=== PATIENT | male | born 1995 | race Caucasian/White ===

== ENCOUNTER 2023-06-21 04:15 | Emergency (ER) | payer SELFPAY | END 2023-06-21 04:53 | disposition home or self-care (01) | LOC: DL.ED 04:15 | DX: F41.9 Anxiety disorder, unspecified (principal); R56.9 Unspecified convulsions; F17.210 Nicotine dependence, cigarettes, uncomplicated | CPT/HCPCS: 99282; 99284 ==

== ENCOUNTER 2023-07-10 21:56 | Emergency (ER) | payer OTHER ==
[2023-07-10 22:46] LABS: BASOPHILS PERCENT AUTO 0.4 % (0.0-1.0); EOSINOPHILS PERCENT AUTO 0.3 % (1.0-3.0); HEMATOCRIT 42.3 % (40.0-54.0); HEMOGLOBIN 14.5 g/dL (14.0-18.0); LYMPHOCYTES PERCENT AUTO 22.7 % (20.5-50.1); MEAN CORPUSCULAR HEMOGLOBIN 30.5 pg (27.0-34.0); MEAN CORPUSCULAR HGB CONC 34.3 g/dL (33.0-35.0); MEAN CORPUSCULAR VOLUME 89.1 fL (80-100); MONOCYTES PERCENT AUTO 5.8 % (2-8); NEUTROPHILS PERCENT AUTO 70.8 % (42.2-75.2); PLATELET COUNT,PLT 361 10^3/uL (150-450); RED BLOOD CELL COUNT 4.75 10^6/uL (4.6-6.2); WHITE BLOOD CELL COUNT,WBC 10.6 10^3/uL (5.0-10.0)
[2023-07-10] MEDS ORDERED: Iopamidol 755 Mg/ML 100 ML Bottle IVPUSH ONE (22:52)
[2023-07-10] MEDS ORDERED: Diphtheria,Pertussis(Acell),Tetanus Vaccine 0.5 ML Syringe IM ONE (22:55)
[2023-07-10 23:05] LABS: A/G RATIO 1.1; ALBUMIN 3.7 g/dL (3.4-5.0); ANION GAP 17.8 mEq/L (7-13); BILIRUBIN TOTAL 0.2 mg/dL (0.2-1.0); BUN/CREATININE RATIO 11.2 (No establ ref range); CALCIUM 8.6 mg/dL (8.5-10.1); CREATININE 0.89 mg/dL (0.70-1.30); EST CRCL DRUG DOSING (CG) 115.53 mL/min; POTASSIUM,K 2.8 mmol/L (3.5-5.1); PROTEIN TOTAL,TP 7.2 g/dL (6.4-8.2)
[2023-07-10 23:14] LABS: PROTHROMBIN TIME 10.3 SEC (9.0-12.0); PTT,PARTIAL THROMBOPLSTIN TIME 27.2 SEC (22.0-34.0)
[2023-07-10 23:42] LABS: APPEARANCE,URINE CLEAR (CLEAR); BILIRUBIN,URINE NEGATIVE (NEGATIVE); COLOR,URINE YELLOW (YELLOW); GLUCOSE,URINE NEGATIVE (NEGATIVE); KETONES,URINE NEGATIVE (NEGATIVE); LEUKOCYTE ESTERASE,URINE NEGATIVE (NEGATIVE); NITRITE,URINE NEGATIVE (NEGATIVE); OCCULT BLOOD,URINE MODERATE (NEGATIVE); PROTEIN,URINE NEGATIVE (NEGATIVE); UROBILINOGEN,URINE 0.2 mg/dL (0.2-1.0)
[2023-07-10 23:44] LABS: AMPHETAMINES,URINE NEGATIVE (NEGATIVE); BARBITURATES,URINE NEGATIVE (NEGATIVE); BENZODIAZEPINE,URINE NEGATIVE (NEGATIVE); MDMA (ECSTASY), URINE NEGATIVE (NEGATIVE); METHADONE,URINE NEGATIVE (NEGATIVE); METHAMPHETAMINES,URINE POSITIVE (NEGATIVE); OPIATES,URINE NEGATIVE (NEGATIVE); OXYCODONE,URINE NEGATIVE (NEGATIVE); PHENCYCLIDINE,URINE NEGATIVE (NEGATIVE); TCA,URINE NEGATIVE (NEGATIVE)
[2023-07-10 23:58] LABS: BACTERIA,URINE FEW /HPF (0-FEW/HPF); EPITHELIAL CELLS,URINE FEW /HPF (NOT SEEN); HYALINE CASTS,URINE FEW; MUCUS,URINE MODERATE /LPF (NOT SEEN); WBC,URINE 0-5 /HPF (0-5/HPF)
[2023-07-11] MEDS ORDERED: fentaNYL 100 MCG/2 ML SDV IVPUSH ONE (00:04)
[2023-07-11] MEDS ORDERED: Lactated Ringers 1,000 ML IV ONE (00:04)
[2023-07-11] MEDS ORDERED: Potassium Chloride 10% 20 MEQ/15 ML Soln 15 ML UD Cup PO SCH ×2 (00:11→08:00)
[2023-07-11] MEDS ORDERED: Bacitracin Oint 1 GM U/D Packet TOP ONE (00:13)
[2023-07-11] MEDS ORDERED: Potassium Chloride 10% 20 MEQ/15 ML Soln 15 ML UD Cup PO ONE (00:20)
== END 2023-07-11 00:50 | disposition home or self-care (01) ==
LOC: DL.ED 21:56
DX: S50.811A Abrasion of right forearm, initial encounter (principal); F10.920 Alcohol use, unspecified with intoxication, uncomplicated; F15.129 Other stimulant abuse with intoxication, unspecified; E87.6 Hypokalemia; Z23 Encounter for immunization; Y90.3 Blood alcohol level of 60-79 mg/100 ml; V29.99XA Rider (driver) (passenger) of other motorcycle injured in unspecified traffic accident, initial encounter
CPT/HCPCS: 36415; 70450; 71260; 72125; 74177; 80053; 80305; 80307; 81001; 85025; 85610; 85730; 86850; 86900; 86901; 90471; 90715; 96374; 99284; A9270; J3010; J7120; Q9967